=== PATIENT | female | born 1935 | race Two or more races ===

== ENCOUNTER 2023-08-16 09:43 | Outpatient (REF) | payer MEDICARE, SELFPAY ==
--- NOTE | ~2023-08-16 | XR_ITS ---
EXAMINATION: XR HIP, LEFT CLINICAL INFORMATION: Pain in left hip. COMPARISON: None available. TECHNIQUE: 5 views of the left hip. FINDINGS: Limited visualization due to bowel gas and body habitus. Bones are diffusely demineralized. Degenerative changes in the imaged lower lumbar spine. Moderate degenerative changes in the bilateral sacroiliac joints. Moderate degenerative changes on AP view of the right hip. Degenerative changes with moderate joint space narrowing and hypertrophic change in the left hip. Alignment is preserved. Limited visualization due to body habitus. XR/XR hip LT w PEL1V IMPRESSION: 1. 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 2. Bones are diffusely demineralized. Limited visualization due to bowel gas and body habitus. Additional imaging with CT scan or MRI should be considered for better visualization as these modalities are much more sensitive for detection of fracture or other underlying pathology.
== END 2023-08-16 09:44 | disposition home or self-care (01) ==
LOC: HO.XRAY 09:43
PROVIDERS: PCP Physician Assistant; Visit Provider Registered Nurse Emergency
DX: M25.552 Pain in left hip (principal); M47.816 Spondylosis without myelopathy or radiculopathy, lumbar region; M79.18 Myalgia, other site
CPT/HCPCS: 73502; 99202

== ENCOUNTER 2023-08-16 09:43 | Outpatient (AMB) | payer MEDICARE, MEDICAID, SELFPAY ==
--- NOTE | 2023-08-16 10:20 | MHC.OFFVIS ---
Vital Signs 08/16/23 10:23 Height 5 ft Weight 110 lb BMI 21.5 BP 133/61 Blood Pressure Location Lt brachial Position Sitting Respiration 14 Pulse 62 Pulse Source Pulse Oximeter Pulse Oximetry (%) 97 Oxygen Delivery Method Room Air Intake Visit Reasons: low back pain Allergies No Known Allergies Allergy (Verified 08/16/23 10:03) HPI Comments Details: Sisi is a very pleasant, Tajik speaking patient, who presents to the office today accompanied by her FOUNDRY MOLDER for evaluation and management of her lower back pain. Visit was completed using tablet language interpreter, #[id number]. Patient requesting to focus todays appt on her acute left hip/lower back pain that started approx 2 weeks ago. She denies injury/trauma/fall. Pain is worse with movement and activities of daily living. Unable to stand at the counter and cook without significant pain increase. Has been taking Tylenol, using topical NSAID ointment and patches with minimal improvement. She tried PT and massage but both exacerbated her pain. Has not attempted acupuncture or manual manipulation by chiropractor. Pain today rated 9/10, constant. In terms of muscle damage condition is described as aching, dull, numb, throbbing, cold. Pain is negatively impacting patient's enjoyment of life, general activity, recreational activities, sleep and walking. She also reports 7 years of bilateral lower back pain described as mild currently. Patient states she is not interested in neuromodulation or temporary/permanent devices, would consider diagnostic injections. [facility] Medical History (Updated 08/16/23 @ 11:12 by Yudith Matos, RETAIL SERVICE SPECIALIST, HYDROGENATION STILL OPERATOR) Lumbar disc disease Chronic midline low back pain without sciatica B12 nutritional deficiency Essential hypertension, benign Age-related osteoporosis without current pathological fracture Routine general medical examination at health care facility Hernia, hiatal Review of Systems Const All systems reviewed & are unremarkable except as noted in HPI and below Physical Exam Vital Signs: Last Vital Signs Pulse 62 08/16/23 10:23 Resp 14 08/16/23 10:23 BP 133/61 08/16/23 10:23 Pulse Ox 97 08/16/23 10:23 Oxygen Delivery Method Room Air 08/16/23 10:23 BMI result Body Mass Index 21.5 General: awake, alert, oriented. Answers questions appropriately. Fully engaged in examination. Skin: warm, dry, intact HEENT: Normocephalic. Hearing intact. Cardiac: External chest normal in appearance. Respiratory: No cough, audible wheezing or stridor. Abdomen: without gross distension. MS: Significant kyphosis and dextroscoliosis Able to transition from sit to stand unassisted. Ambulates with bilaterally normal heel strike and toe off SLR with dorsiflexion negative bilaterally Merle positive on right nontender left PSIS no pain with I/E rotation left hip nontender over midline lumbar vertebrae or lumbar paraspinal muscles Neurological: Oriented to person, place, time and situation. Thought process intact. No gait abnormalities appreciated. Psychiatric: Appropriate mood and affect. Good judgment and insight. Results Reviewed Results Reviewed: Assessment & Plan Assessment & Plan (1) Left hip pain: Code(s): M25.552 - Pain in left hip Category: Medical (2) Lumbar spondylosis: Code(s): M47.816 - Spondylosis without myelopathy or radiculopathy, lumbar region Category: Medical (3) Lumbar muscle pain: Code(s): M79.18 - Myalgia, other site Category: Medical Plan Patient presented to the office today requesting to focus on her acute left hip pain. Xray ordered for evaluation TENS unit ordered, patient instructed on use with Demo unit in office today. Methocarbamol 500mg po TID, patient instructed on cautions for use. All questions and concerns were addressed, patient agrees with plan. Follow up in the office if no improvement, sooner if needed. Orders: Orders XR hip LT w PEL1V Today M25.552 - Pain in left hip Medications: New methocarbamol No driving while taking this medication. Do no take with alcohol or other [employer] Depressants 500 mg PO Q8H PRN 90 tabs 0RF muscle spasm Coding Level of Care Code New Pt Level 4 (61636) Diagnoses Left hip pain M25.552 Lumbar spondylosis M47.816 Lumbar muscle pain M79.18
[2023-08-16 10:23] VITALS: BP 133/61; PULSE 62; RESP 14; O2SAT 97; BMI 21.5
== END 2023-08-16 10:40 | disposition home or self-care (01) ==
PROVIDERS: PCP Physician Assistant; Visit Provider Registered Nurse Emergency
DX: M25.552 Pain in left hip (principal); M47.816 Spondylosis without myelopathy or radiculopathy, lumbar region; M79.18 Myalgia, other site
CPT/HCPCS: 99204